=== PATIENT | female | born 1975 | race Caucasian/White ===

== ENCOUNTER 2017-05-25 19:43 | Emergency (ER) | payer OTHER ==
[2017-05-25 20:38] LABS: Hematocrit 40 % (35-47); Hemoglobin 13.7 g/dl (12.0-16.0); Mean Corpuscular HGB Conc 34 g/dl (31-36); Mean Corpuscular Hemoglobin 32 pg (27-31); Mean Corpuscular Volume 94 fL (80-97); Mean Platelet Volume 8 um3 (7.4-10.4); Red Blood Count 4.26 10^6/ul (4.0-5.4); Red Cell Distribution Width 13 % (10.5-15); White Blood Count 5.8 10^3/ul (3.5-10.8)
[2017-05-25 20:51] LABS: ALT 12 U/L (7-52); AST 12 U/L (13-39); Albumin 4.2 g/dL (3.2-5.2); Alkaline Phosphatase 45 U/L (34-104); Anion Gap 6 mmol/L (2-11); BUN/Creatinine Ratio 15.5 (8-20); Blood Urea Nitrogen 13 mg/dL (6-24); C Reactive Protein < 1.00 mg/L (< 5.00); CO2 Carbon Dioxide 28 mmol/L (22-32); Calcium 9.6 mg/dL (8.6-10.3); Chloride 104 mmol/L (101-111); Creatine Kinase 41 U/L (10-223); EGFR African American 95.6 (>60); EGFR Non-African American 74.4 (>60); Globulin 2.4 g/dL (2-4); Glucose 91 mg/dL (70-100); Lipase 52 U/L (11.0-82.0); Magnesium 2.2 mg/dL (1.9-2.7); Potassium 3.7 mmol/L (3.5-5.0); Sodium 138 mmol/L (133-145); Total Protein 6.6 g/dL (6.4-8.9)
[2017-05-25 21:26] LABS: TSH (Thyroid Stimulating Horm) 1.63 mcIU/mL (0.34-5.60)
[2017-05-25] MEDS ORDERED: Ketorolac INJ* 30 MG/ML 1 ML VIAL IV PUSH ONE (21:55)
[2017-05-25] MEDS ORDERED: Aspirin Low Dose CHEW TAB* 81 MG PO ONE (21:55)
[2017-05-25 22:18] VITALS: BP 113/79
--- NOTE | 2017-05-26 04:22 | ED ---
Abby Mendez Edward, scribed for Efrain Castano MD on 05/25/17 at 2210 . HPI Chest Pain - HPI Summary HPI Summary: 41 y/o female presents to the ED c/o intermittent CP for the past several days. The pain was rated 3/10 in severity at triage. Pt describes the pain as GERD- like. Associated sx: nausea, pain at hip area. Today the pain started after running 3 miles; pt was walking up stairs when it appeared. Pt states she also had some pressure when she got home. The pain is not aggravated with deep breaths. Pt states recent work-related stress. FHx heart disease, cousin at 41 of AA. Pt was in [facility] recently for business. Denies pedal edema or calf pain, SOB. Non smoker. PMHx no HTN, HLD or DM. - History of Current Complaint Chief Complaint: EDChestPainROMI Time Seen by Provider: 05/25/17 21:54 Hx Obtained From: Patient Onset/Duration: Started Days Ago Timing: Intermittent Initial Severity: Mild Pain Intensity: 3 Pain Scale Used: 0-10 Numeric Chest Pain Radiates: No Character: Pressure/Squeezing Aggravating Factor(s): Nothing Alleviating Factor(s): Nothing Associated Signs and Symptoms: Positive: Nausea. Negative: Shortness of Breath , Calf Pain/Swelling - Allergy/Home Medications Allergies/Adverse Reactions: Allergies Allergy/AdvReac Type Severity Reaction Status Date / Time No Known Allergies Allergy Verified 05/25/17 20:02 PMH/Surg Hx/FS Hx/Imm Hx Previously Healthy: No Endocrine/Hematology History: Denies: Hx Diabetes Cardiovascular History: Denies: Hx Hypertension Infectious Disease History: No Infectious Disease History: Reports: Traveled Outside the in Last 30 Days - [facility] - Family History Known Family History: Positive: Cardiac Disease - Social History Occupation: Employed Full-time Lives: With Family Hx Substance Use: No Substance Use Type: Reports: None Hx Tobacco Use: No Smoking Status (MU): Never Smoked Tobacco Review of Systems Constitutional: Negative Eyes: Negative ENT: Negative Positive: Chest Pain Respiratory: Negative Positive: Nausea Genitourinary: Negative Musculoskeletal: Negative Skin: Negative Neurological: Negative Psychological: Normal All Other Systems Reviewed And Are Negative: Yes Physical Exam Triage Information Reviewed: Yes Vital Signs On Initial Exam: Initial Vitals Temp Pulse Resp BP Pulse Ox 98.3 F 73 16 114/72 96 05/25/17 19:58 05/25/17 19:58 05/25/17 19:58 05/25/17 19:58 05/25/17 19:58 Vital Signs Reviewed: Yes Appearance: Positive: Well-Appearing, No Pain Distress Skin: Positive: Warm, Skin Color Reflects Adequate Perfusion, Dry Head/Face: Positive: Normal Head/Face Inspection Eyes: Positive: EOMI, HANNAH ENT: Positive: Normal ENT inspection Neck: Positive: Supple, Nontender Respiratory/Lung Sounds: Positive: Clear to Auscultation, Breath Sounds Present Cardiovascular: Positive: RRR, Pulses are Symmetrical in both Upper and Lower Extremities, Other - No Dolores's sign. Abdomen Description: Positive: Nontender, Soft Bowel Sounds: Positive: Present Musculoskeletal: Positive: Normal - No reproducible chest tenderness., Strength/ ROM Intact. Negative: Edema Left, Edema Right Neurological: Positive: Normal, Sensory/Motor Intact Diagnostics - Vital Signs Vital Signs Temp Pulse Resp BP Pulse Ox 05/25/17 19:58 98.3 F 73 16 114/72 96 - Laboratory Lab Results: Lab Results 05/25/17 05/25/17 05/25/17 Range/Units 20:22 20:22 20:22 WBC 5.8 (3.5-10.8) 10^3/ul RBC 4.26 (4.0-5.4) 10^6/ul Hgb 13.7 (12.0-16.0) g/dl Hct 40 (35-47) % MCV 94 (80-97) fL MCH 32 H (27-31) pg MCHC 34 (31-36) g/dl RDW 13 (10.5-15) % Plt Count 277 (150-450) 10^3/ul MPV 8 (7.4-10.4) um3 Neut % (Auto) 43.0 (38-83) % Lymph % (Auto) 43.1 (25-47) % Dundy % (Auto) 9.7 H (1-9) % Eos % (Auto) 2.9 (0-6) % Baso % (Auto) 1.3 (0-2) % Absolute Neuts (auto) 2.5 (1.5-7.7) 10^3/ul Absolute Lymphs (auto) 2.5 (1.0-4.8) 10^3/ul Absolute Monos (auto) 0.6 (0-0.8) 10^3/ul Absolute Eos (auto) 0.2 (0-0.6) 10^3/ul Absolute Basos (auto) 0.1 (0-0.2) 10^3/ul Absolute Nucleated RBC 0 10^3/ul Nucleated RBC % 0 INR (Anticoag Therapy) 0.86 (0.77-1.02) APTT 28.5 (26.0-36.3) seconds Sodium 138 (133-145) mmol/L Potassium 3.7 (3.5-5.0) mmol/L Chloride 104 (101-111) mmol/L Carbon Dioxide 28 (22-32) mmol/L Anion Gap 6 (2-11) mmol/L BUN 13 (6-24) mg/dL Creatinine 0.84 (0.51-0.95) mg/dL Est GFR ( Amer) 95.6 (>60) Est GFR (Non-Af Amer) 74.4 (>60) BUN/Creatinine Ratio 15.5 (8-20) Glucose 91 (70-100) mg/dL Lactic Acid (0.5-2.0) mmol/L Calcium 9.6 (8.6-10.3) mg/dL Magnesium 2.2 (1.9-2.7) mg/dL Total Bilirubin 0.70 (0.2-1.0) mg/dL AST 12 L (13-39) U/L ALT 12 (7-52) U/L Alkaline Phosphatase 45 (34-104) U/L Total Creatine Kinase 41 (10-223) U/L CK-MB (CK-2) 1.8 (0.6-6.3) ng/mL Troponin I 0.00 (<0.04) ng/mL C-Reactive Protein < 1.00 (< 5.00) mg/L Total Protein 6.6 (6.4-8.9) g/dL Albumin 4.2 (3.2-5.2) g/dL Globulin 2.4 (2-4) g/dL Albumin/Globulin Ratio 1.8 (1-3) Lipase 52 (11.0-82.0) U/L TSH 1.63 (0.34-5.60) mcIU/mL Beta HCG, Quant < 0.60 mIU/mL 05/25/17 Range/Units 20:22 WBC (3.5-10.8) 10^3/ul RBC (4.0-5.4) 10^6/ul Hgb (12.0-16.0) g/dl Hct (35-47) % MCV (80-97) fL MCH (27-31) pg MCHC (31-36) g/dl RDW (10.5-15) % Plt Count (150-450) 10^3/ul MPV (7.4-10.4) um3 Neut % (Auto) (38-83) % Lymph % (Auto) (25-47) % Dundy % (Auto) (1-9) % Eos % (Auto) (0-6) % Baso % (Auto) (0-2) % Absolute Neuts (auto) (1.5-7.7) 10^3/ul Absolute Lymphs (auto) (1.0-4.8) 10^3/ul Absolute Monos (auto) (0-0.8) 10^3/ul Absolute Eos (auto) (0-0.6) 10^3/ul Absolute Basos (auto) (0-0.2) 10^3/ul Absolute Nucleated RBC 10^3/ul Nucleated RBC % INR (Anticoag Therapy) (0.77-1.02) APTT (26.0-36.3) seconds Sodium (133-145) mmol/L Potassium (3.5-5.0) mmol/L Chloride (101-111) mmol/L Carbon Dioxide (22-32) mmol/L Anion Gap (2-11) mmol/L BUN (6-24) mg/dL Creatinine (0.51-0.95) mg/dL Est GFR ( Amer) (>60) Est GFR (Non-Af Amer) (>60) BUN/Creatinine Ratio (8-20) Glucose (70-100) mg/dL Lactic Acid 0.7 (0.5-2.0) mmol/L Calcium (8.6-10.3) mg/dL Magnesium (1.9-2.7) mg/dL Total Bilirubin (0.2-1.0) mg/dL AST (13-39) U/L ALT (7-52) U/L Alkaline Phosphatase (34-104) U/L Total Creatine Kinase (10-223) U/L CK-MB (CK-2) (0.6-6.3) ng/mL Troponin I (<0.04) ng/mL C-Reactive Protein (< 5.00) mg/L Total Protein (6.4-8.9) g/dL Albumin (3.2-5.2) g/dL Globulin (2-4) g/dL Albumin/Globulin Ratio (1-3) Lipase (11.0-82.0) U/L TSH (0.34-5.60) mcIU/mL Beta HCG, Quant mIU/mL Result Diagrams: 05/25/17 20:22 05/25/17 20:22 Lab Statement: Any lab studies that have been ordered have been reviewed, and results considered in the medical decision making process. - Radiology CXR Xray Interpretation: Positive (See Comments) - Perihilar inflammation with peribronchial cuffing Radiology Interpretation Completed By: ED Physician Re-Evaluation - Re-Evaluation 1 Re-Evaluation Time: 23:08 Change: Improved Comment: Discuss test and XR results Chest Pain Course/Dx - Course Course Of Treatment: Pt with chest tightness only after running over 3miles. Some burning in chest without cough. EKG/Trop/ddimer neg. Low risk. SHAUNNA score 0. HEART score 1. - Chest Pain Differential Diagnosis/HQI/PQRI: Acute KS, ACS, Lower Respiratory Infection, Pulmonary Embolism - Diagnoses Provider Diagnoses: Atypical chest pain, Bronchitis Discharge - Discharge Plan Condition: Good Disposition: HOME Prescriptions: predniSONE TAB* [Deltasone TAB*] 50 mg PO DAILY #3 tab Patient Education Materials: Chest Pain (ED), Acute Bronchitis (ED) Referrals: Loy Craig TRIMMER AND BORER MACHINE OPERATOR [Primary Care Provider] - Additional Instructions: humidifier while sleeping. Rest. Indoor exercise. Return with fever, worse, new symptoms or other concerns as discussed. The documentation as recorded by the Abby garcia Edward accurately reflects the service I personally performed and the decisions made by , Efrain Castano MD.
--- NOTE | 2017-05-26 07:38 | RAD ---
INDICATION: Chest pain. COMPARISON: There are no prior studies available for comparison. TECHNIQUE: Dual-energy PA and lateral views of the chest were obtained. FINDINGS: The heart is within normal limits in size. Mediastinal and hilar contours appear within normal limits. The lungs are clear. No pleural effusion is present. IMPRESSION: NO EVIDENCE FOR ACTIVE CARDIOPULMONARY DISEASE.
== END 2017-05-25 23:26 | disposition home or self-care (01) ==
LOC: ED 19:43
DX: R07.89 Other chest pain (principal); J40 Bronchitis, not specified as acute or chronic; I10 Essential (primary) hypertension; E78.5 Hyperlipidemia, unspecified; E11.9 Type 2 diabetes mellitus without complications
CPT/HCPCS: 36415; 71020; 80053; 82550; 82553; 83605; 83690; 83735; 84443; 84484; 84702; 85025; 85379; 85610; 85730; 86140; 93005; 99282; A9270-GY; J1885

== ENCOUNTER 2019-06-14 07:53 | Day surgery (SDC) | payer OTHER ==
[~2019-06-14 07:53] MED LIST: Acetaminophen TAB* 325 MG PO ONE; Buffered Lidocaine 1% SYRIN* 1 ML/SYRINGE INTRADERM ONE; Famotidine IV* 10 MG/ML 2 ML (20 mg) IV ONE; Gabapentin CAP(*) 300 MG PO ONE; Lactated Ringers 1000 ML Bag* 1,000 ML IV SCH
[2019-06-14] MEDS ORDERED: Gabapentin CAP(*) 300 MG ONE (09:07)
[2019-06-14] MEDS ORDERED: Acetaminophen TAB* 325 MG ONE (09:08)
[2019-06-14] MEDS ORDERED: Famotidine IV* 10 MG/ML 2 ML (20 mg) ONE (09:08)
[2019-06-14] MEDS ORDERED: Buffered Lidocaine 1% SYRIN* 1 ML/SYRINGE INTRADERM ONE (09:08)
[2019-06-14] MEDS ORDERED: Midazolam* 1 MG/ML 2 ML VIAL (2 MG) ONE (10:12)
[2019-06-14] MEDS ORDERED: fentaNYL* 50 MCG/ML 2 ML VIAL (100 MCG VIAL) ONE (10:12)
[2019-06-14] MEDS ORDERED: Lidocaine 1% w EPI 1:100,000* MDV 20 ML VIAL ONE (10:58)
[2019-06-14] MEDS ORDERED: Propofol* 10 MG/ML 20 ML BTL ONE (11:25)
[2019-06-14] MEDS ORDERED: Ondansetron INJ* 2 MG/ML VIAL ONE (11:25)
[2019-06-14] MEDS ORDERED: Dexamethasone IV* 4 MG/ML 1 ML (4 MG) ONE (11:25)
[2019-06-14] MEDS ORDERED: Ketorolac INJ* 30 MG/ML 1 ML VIAL ONE (11:25)
[2019-06-14] MEDS ORDERED: DiMENhydriNATE IV* 50 MG/ML VIAL IV PUSH PRN (11:37)
[2019-06-14] MEDS ORDERED: Ondansetron INJ* 2 MG/ML VIAL IV PRN (11:37)
[2019-06-14] MEDS ORDERED: fentaNYL* 50 MCG/ML 2 ML VIAL (100 MCG VIAL) IV PRN (11:37)
[2019-06-14] MEDS ORDERED: diPHENhydraMINE IV* 50 MG/ML 1 ml VIAL (BENADRYL) IV PRN (11:37)
[2019-06-14] MEDS ORDERED: Naloxone* 0.4 MG/ML 1 ML VIAL IV PRN (11:37)
[2019-06-14] MEDS ORDERED: HYDROcodone/ACETAMIN 5-325 MG* 1 TAB PO PRN (11:37)
[2019-06-14] MEDS ORDERED: EPHEDrine (Pressors)* 50 MG/ML VIAL ONE (11:46)
[2019-06-14 13:28] VITALS: BP 109/72
--- NOTE | 2019-06-15 21:30 | OP ---
OPERATIVE REPORT: DATE OF OPERATION: 06/14/19 DATE OF : 73 SURGEON: Vito Payne DO. ANESTHESIA: LMA general. PRE-OP DIAGNOSIS: Abnormal uterine bleeding and suspected endometrial polyp. POST-OP DIAGNOSIS: Abnormal uterine bleeding, confirmed endometrial polyp x2. OPERATIVE PROCEDURE: Operative hysteroscopy, polypectomy with MyoSure device, dilation and curettage. IV FLUIDS RECEIVED: 1600 mL. ESTIMATED BLOOD LOSS: 5 mL. FLUID DEFICIT: 500 mL. SPECIMEN: Endometrial polyp and endometrial curettage. COMPLICATIONS: None. INDICATIONS: A 43-year-old who presented to [facility] area for a scheduled hysteroscopy, polypectomy with MyoSure, and D and C, had a history of longstanding abnormal uterine bleeding, also known fibroid uterus, elects for polyp removal with hysteroscopy and MyoSure prior to undergoing uterine artery embolization with Interventional Radiology in the coming weeks. The risks, benefits, and alternatives of the procedure were discussed with the patient. She understood the risks of the procedure, include but are not limited to, uterine perforation, fluid overload, rare risk of . She wished to proceed and signed the consent form. FINDINGS: Exam under anesthesia revealed a normal sized retroverted uterus with multiple fibroids, hysteroscopy exhibited 1 pedunculated large polyp originating from the fundus and 1 smaller polyp at the internal cervical os. Uterine cavity and bilateral tubal ostia otherwise appeared to be normal. DESCRIPTION OF PROCEDURE: The patient was taken to the OR where general anesthesia was administered without difficulty. She was placed in the dorsal lithotomy position with [place] stirrups. An exam under anesthesia revealed the findings as outlined above. The patient was then prepared and draped in the normal sterile fashion. A weighted speculum was inserted in the posterior aspect of the vagina. A single-tooth tenaculum was used to grasp the anterior lip of the cervix. The cervix was carefully dilated up to a size 17 using the Hanks dilators to accommodate the [place] MyoSure hysteroscope. On entry into the uterine cavity, the hysteroscope was introduced under direct visualization and the uterus was distended with normal saline. The findings as listed above were noted. The uterine polyps were resected using the MyoSure reach device. The hysteroscope was then withdrawn and a sharp curettage was performed using a medium size sharp curette. The uterus was curetted in a clockwise fashion until a gritty feeling was noted in all aspects of the uterus. The endometrial polyps and endometrial curettage were sent to Pathology. The tenaculum was removed from the cervix and good hemostasis was noted at the puncture sites. The patient tolerated the procedure well. The instrument and sponge counts were correct x2. The patient was awakened from general anesthesia and taken to the recovery room in a stable condition. The patient will go home after recovering from anesthesia and meeting all the criteria for discharge. She has followup in the office in 1 week. I was present for the entire procedure. Joel Payne DO OBGYN [id number]/CPS #: [id number] MTDD
== END 2019-06-14 13:37 | disposition home or self-care (01) ==
LOC: OR 07:53
PROVIDERS: ATTEND Obstetrics & Gynecology
PROC: 0UDB7ZX Extraction of Endometrium, Via Natural or Artificial Opening, Diagnostic (ICD-10-PCS; 2019-06-14)
PROC: 0UB98ZX Excision of Uterus, Via Natural or Artificial Opening Endoscopic, Diagnostic (ICD-10-PCS; principal; 2019-06-14 10:00)
DX: N84.0 Polyp of corpus uteri (principal); N93.9 Abnormal uterine and vaginal bleeding, unspecified; D25.9 Leiomyoma of uterus, unspecified; Z87.891 Personal history of nicotine dependence
CPT/HCPCS: 88305; A9270-GY; J1100; J1885; J2250; J2405; J2704; J3010

== ENCOUNTER 2019-06-24 11:55 | Observation (INO) | payer OTHER ==
[2019-06-24] MEDS ORDERED: Clindamycin 900 MG/D5W BAG(*) 900 MG/50 ML BAG IVPB ONE (13:00)
[2019-06-24 13:23] LABS: Anion Gap 6 mmol/L (2-11); CO2 Carbon Dioxide 26 mmol/L (22-32); Calcium 9.2 mg/dL (8.6-10.3); Chloride 105 mmol/L (101-111); Potassium 4.1 mmol/L (3.5-5.0); Sodium 137 mmol/L (135-145)
[2019-06-24 13:29] LABS: BUN/Creatinine Ratio 17.8 (8-20); Blood Urea Nitrogen 13 mg/dL (6-24); EGFR African American 104.8 (>60); EGFR Non-African American 86.6 (>60); Glucose 86 mg/dL (70-100)
[2019-06-24 13:36] LABS: HCG Pregnancy < 0.60 mIU/mL
[2019-06-24] MEDS ORDERED: LORazepam TAB(*) 1 MG ONE (14:27)
[2019-06-24] MEDS ORDERED: Naproxen TAB* 250 MG ONE (14:50)
[2019-06-24] MEDS ORDERED: Scopolamine 1.5 mg* PATCH ONE (14:50)
[2019-06-24] MEDS ORDERED: Ondansetron INJ* 2 MG/ML VIAL ONE (14:51)
[2019-06-24] MEDS ORDERED: oxyCODONE SR TAB(*) 10 MG TAB.SR ONE (14:51)
[2019-06-24] MEDS ORDERED: Iohexol 350 (CONTRAST) 200 ML MDV IV ONE ×2 (15:09→16:49)
[2019-06-24] MEDS ORDERED: Heparin 2 UNITS/ML IVPREMIX* 2,000 ML IV ONE (15:09)
[2019-06-24] MEDS ORDERED: Lidocaine 1% INJ* 10 MG/ML 30 ML SDV ONE (15:09)
[2019-06-24] MEDS ORDERED: Ketorolac INJ* 30 MG/ML 1 ML VIAL ONE ×2 (15:29→17:04)
[2019-06-24] MEDS ORDERED: fentaNYL* 50 MCG/ML 2 ML VIAL (100 MCG VIAL) ONE (15:29)
[2019-06-24] MEDS ORDERED: Midazolam* 1 MG/ML 5 ML VIAL (5 MG) ONE (15:29)
[2019-06-24] MEDS ORDERED: nitroGLYCERIN DRIP* 25,000 MCG/250 ML BTL ONE (15:30)
[2019-06-24] MEDS ORDERED: fentaNYL* 50 MCG/ML 5 ML VIAL (250 MCG VIAL) ONE (15:43)
[2019-06-24] MEDS ORDERED: PROCHLORPERAZINE INJ 5 MG/ML 2 ML VIAL ONE (16:25)
[2019-06-24] MEDS ORDERED: HYDROmorphone INJ1* 1 MG/ML SYRINGE ONE (17:39)
[2019-06-24] MEDS ORDERED: HYDROmorphone PCA* 20 MG/20 ML PCA.SYRING ONE (18:00)
[2019-06-24] MEDS ORDERED: HYDROmorphone INJ1* 1 MG/ML SYRINGE IV PRN (18:16)
[2019-06-24] MEDS ORDERED: NS 0.9% 1000 ML** 1,000 ML IV SCH (18:30)
[2019-06-24] MEDS ORDERED: HYDROmorphone PCA* 20 MG/20 ML PCA.SYRING PCA SCH (18:30)
[2019-06-24] MEDS ORDERED: Acetaminophen TAB* 325 MG PO PRN (18:34)
--- NOTE | 2019-06-24 18:54 | PN ---
Progress Note - Progress Note Date of Service: 06/24/19 SOAP: Subjective: Pain controlled, <2/10 No nausea or emesis Objective: Selected Entries 06/24/19 06/24/19 18:24 18:30 Temperature 96.8 F Pulse Rate 66 Respiratory 16 Rate Blood Pressure 113/73 (mmHg) O2 Sat by Pulse 94 Oximetry NAD, Sleepy, but arousable to voice. Right groin is soft, nontender Dressing is CDI 2+ pulse at right PIPELINE OPERATOR, pop, DPA BLE neuromuscular function is grossly intact Abdomen and pelvis is soft, minimally tender Assessment: 43 YOF status post uterine fibroid arterial embolization with pain an nausea well controlled. Plan: 1. Admission with Hospitalist for routine Interventional Radiology pain & nausea control. 2. Diet. 3. Will see in AM.
[2019-06-24] MEDS: Ondansetron INJ* 2 MG/ML VIAL IV SCH (23:24)
[2019-06-24] MEDS: Ketorolac INJ* 15 MG/ML 1 ML VIAL IV PUSH SCH (23:31)
[2019-06-25] MEDS: Ondansetron INJ* 2 MG/ML VIAL IV SCH (05:17)
[2019-06-25] MEDS: Ketorolac INJ* 15 MG/ML 1 ML VIAL IV PUSH SCH (05:19)
[2019-06-25] MEDS ORDERED: Cholecalciferol TAB* 1000 UNITS PO SCH (09:00)
[2019-06-25] MEDS ORDERED: Cyanocobalamin TAB* 500 MCG PO SCH (09:00)
[2019-06-25] MEDS ORDERED: HYDROcodone/ACETAMIN 5-325 MG* 1 TAB PO PRN (09:23)
--- NOTE | 2019-06-25 09:23 | PN ---
Progress Note - Progress Note Date of Service: 06/25/19 SOAP: Subjective: Pain rated at 7/10. Denies nausea or emesis O/N. Has drank clear liquids and eaten breakfast of cereal, muffin and coffee. + void and ambulated without assistance. Objective: ] Selected Entries 06/25/19 06/25/19 07:33 08:00 Temperature 99 F Pulse Rate 72 Respiratory 16 Rate Blood Pressure 105/63 (mmHg) Blood Pressure 77 Mean O2 Sat by Pulse 98 Oximetry The patient has utilized only 1.8 mg of Dilaudid since yesterday evening according to her SUPERVISOR UNDERWRITING CLERKS NAD, AAO x 3, sitting up talking with Satish Abd & Pelvis are soft, but tender to deep palpation No rebound or guarding Right groin is soft, nontender Dressing is CDI 2+ pulses readily palpable at right WARDROBE CONSULTANT, pop and DPA Neuromuscular functions of RLE are intact Assessment: 43 YOF POD #1 Uterine Fibroid Arterial Embolization with nausea controlled and some pain. Patient was encouraged to utilize her pain medications both here at home during her recovery. Plan: 1. Transition IV to PO medications. 2. Anticipate DC to home today. 3. Routine IR clinic follow up will include RN call in 24 hours and 1 week followed by office visits in 6 weeks and 6 months. 4. Post UFE pharmacotherapy will be as follows: Toradol 10 mg PO Q 6 hours x 3 days (Dispense #15 with one refill) AFTER Toradol is complete: Ibuprofen 400 mg PO Q 6 hours OR Naprosyn 225 mg PO Q 8 hours for 3-5 days (do not take both) [place] 5/325, take 1 or 2 tablets by mouth Q 6 hours PRN breakthrough pain ( Dispense #40) Zofran 4 mg PO Q 6 hours x 7 days (Dispense #30 with one refill) Scopolamine 1.5 mg transdermal to mastoid process. On , 06/27/19 at 1200 PM, remove current patch, replace with new patch and wear x 3 days. Drink one cup of laxative tea daily (For example, "Smooth Move") for one week.
--- NOTE | 2019-06-25 09:45 | HP ---
CC: Dr. Payne; Dr. Whipple * HISTORY AND PHYSICAL: DATE OF ADMISSION: 06/24/19 PROVIDER: Dipti Bunn NP PRIMARY CARE PROVIDER: None. PRIMARY GATE AGENT: Dr. Payne. ATTENDING PHYSICIAN WHILE IN THE HOSPITAL: Dr. Asha Flaherty * (dictated by Dipti Bunn NP). CHIEF COMPLAINT: Status post uterine artery fibroid embolization. HISTORY OF PRESENT ILLNESS: Ms. Dillard is a 43-year-old female with no significant past medical history, who presented to [facility] for an elective uterine artery fibroid embolization with Dr. Whipple due to 2 years of heavy bleeding and multiple uterine fibroids. Please see dictated H and P from Dr. Whipple for complete details. In brief, the patient had ongoing heavy bleeding with multiple uterine fibroids, so opted to have an elective uterine artery fibroid embolization with Dr. Whipple. In the postoperative period, the patient has no complaints. PAST MEDICAL HISTORY: Significant for menorrhagia, uterine fibroids. PAST SURGICAL HISTORY: 1. x2. 2. Tonsillectomy. HOME MEDICATIONS: Include: 1. Women's multivitamin. 2. Vitamin B12. 3. Vitamin D. ALLERGIES: No known drug allergies. FAMILY HISTORY: No reported history of coronary artery disease or stroke. No history of diabetes. Father with a history of prostate cancer. Mother with a history of thyroid cancer. SOCIAL HISTORY: The patient reports that she quit smoking approximately 10 years ago. Prior to that, she smoked socially for 10 years. She does report daily alcohol use of 3 glasses of wine daily. She does report occasional marijuana use. Surrogate decision maker in the event she is unable to make her own decisions is her . She is a full code. REVIEW OF SYSTEMS: She denies any fever, chills, unintended weight loss. Denies any chest pain or edema. No cough, hemoptysis, or shortness of breath. No nausea, vomiting, diarrhea, abdominal pain, hematuria, dysuria. She denies any focal weakness, sensory loss, visual complaints, dysphagia, arthralgias, myalgias, rashes, lesions, open sores, psychosis, or anxiety. PHYSICAL EXAMINATION GENERAL: At this time, Ms. Dillard is a 43-year-old female. She is resting comfortably on the stretcher in PACU. She is drowsy. She is alert and oriented x3. VITAL SIGNS: Blood pressure 129/74, heart rate 64, respirations are 18, O2 saturation 98%, temperature is 96.8. HEENT: Head is atraumatic, normocephalic. Eyes: EOMs are intact. Sclerae anicteric and not pale. Oral mucosa appeared to be moist. NECK: Supple. LUNGS: Clear to auscultation bilaterally. No wheezes, rales, or rhonchi. ABDOMEN: With mild tenderness to lower abdomen. Bowel sounds are active x4. EXTREMITIES: She is able to move all 4 extremities. Sensation is intact. There is no clubbing or cyanosis. Pedal pulses are +2 bilaterally. Radial pulses are +2 bilaterally. NEUROLOGIC: She is awake. She is drowsy, resting on the stretcher on PACU. She is in no acute distress. She has no gross focal deficits. Her speech is clear. SKIN: Intact. DIAGNOSTIC STUDIES/LAB DATA: Sodium 137, potassium 4.1, chloride 105, carbon dioxide 26, anion gap was 6, BUN was 13, creatinine 0.73, glucose is 86, calcium 9.2. Beta hCG quantitative is less than 0.60. IMPRESSION AND PLAN: Ms. Dillard is a 43-year-old female with no significant past medical history, who presented to [facility] for an elective uterine artery fibroid embolization with Dr. Whipple. She will be admitted under observation for: 1. Uterine artery fibroid embolization. Management per Dr. Whipple. 2. FEN: She can have a regular diet. 3. Code status: She is a full code. 4. DVT prophylaxis: As per Dr. Whipple. I would encourage ambulation when able. TIME SPENT: Time spent on this admission was 45 minutes; greater than half that time was spent at the bedside reviewing the events leading thus far to her hospitalization, performing physical exam, and reviewing my plan of care. I have discussed this with my attending, Dr. Asha Flaherty; she is in agreement with my plan. DIPTI BUNN, FRANCES [id number]/[facility] #: [id number] [facility]IT[facility]
[2019-06-25] MEDS ORDERED: Ondansetron TAB* 4 MG PO SCH (10:00)
[2019-06-25] MEDS ORDERED: Ketorolac TAB * 10 MG TAB PO SCH (10:00)
[2019-06-25 11:16] VITALS: BP 108/61
--- NOTE | 2019-06-26 05:41 | DS ---
DISCHARGE SUMMARY: DATE OF ADMISSION: 06/24/19 DATE OF DISCHARGE: 06/25/19 PROVIDER: Dulce Du NP ATTENDING PHYSICIAN: Dr. Flaherty.* (DICTATED BY uDlce Du NP) PRIMARY CARE PHYSICIAN: None. CONSULTING PHYSICIAN: Dr. Whipple. PRIMARY DIAGNOSIS: Multiple uterine fibroid embolizations. PROCEDURES: Status post uterine fibroid embolization. STUDIES: None. PERTINENT LAB DATA: None. HISTORY OF PRESENT ILLNESS/HOSPITAL COURSE: This is a 43-year-old female with a past medical history significant for uterine fibroid embolizations, who was admitted on 06/24/19 status post an elective uterine fibroid embolization after 2 years of heavy bleeding that failed conservative management. Her hospital stay was relatively uneventful. Her pain initially was managed with Dilaudid OPTICAL GLASS SILVERER and IV Toradol, though nausea was managed with IV Zofran and scopolamine patch. This morning, the patient was transitioned over to oral pain medication , was given hydrocodone and oral Toradol as well as oral Zofran and tolerated those medications well. Pain was under control. At the time of my evaluation, she had neither pain nor nausea. Her right groin access site has remained without any bruising or hematoma noted. Peripheral pulses have been positive. The patient stated she felt well and was anxious to be discharged home. REVIEW OF SYSTEMS: An 11-point system review was performed which was positive for abdominal pain with movement, though denied pain at rest. Denied any headaches, dizziness, chest pain, palpitations, shortness of breath, nausea, vomiting, issues moving her bowels or bladder. PHYSICAL EXAM: Vital Signs: 98.3 Fahrenheit, 73 pulse, 16 respirations, 100% oxygen on room air, 108/61 blood pressure. General: This is a well-developed woman, seen resting in the bed, in no acute distress. HEENT: Conjunctivae pink and moist. PERRLA. EOMs intact. Oropharynx clear. Mucous membranes moist. Neck is supple. Cardiac: S1, S2 present. Heart rate regular. No murmurs, gallops, or rubs appreciated. Respiratory: Lung sounds clear throughout bilaterally on room air. No accessory muscle use noted. Abdomen that was softly distended, tender diffusely to palpation with positive bowel sounds x4. Musculoskeletal: 5/5 strength to bilateral upper and lower extremities. No clubbing or cyanosis of the digits. Peripheral pulses equal and strong. Neurological: Sensation intact to light touch. No focal deficits appreciated. Skin: Dressing to right groin intact with trace amount of old bloody drainage without evidence of hematoma. No other open areas or rashes appreciated. Psych: She is alert and oriented x4 with no overt anxiety or depression. DISCHARGE PLAN: Diet is as tolerated. Activity is as tolerated. The patient is to return to the hospital should she notice any spreading bruise around the insertion site, fever of 101 degrees or higher, or increase in abdominal pain or nausea and vomiting not controlled by her medications. PLAN FOR EACH CONDITION: Uterine fibroids, status post UFE. She is to follow up with Dr. Whipple in 6 weeks from the date of her embolization and for second followup appointment in 6 months. Recommended that she drink 1 cup of laxative tea daily and take her regularly scheduled Toradol for 3 days, to switch to ibuprofen or Naprosyn for every 8 hours scheduled for the next 3 to 4 days, though should not take both. She can use Maria Stein for breakthrough pain not controlled by Toradol or ibuprofen and she is to take sublingual Zofran every 6 hours around the clock for the next 7 days and she is to change her scopolamine patch on 06/27/19, at which point she will remove that and place a new patch behind her opposite ear for the next 3 days and then remove. DISCHARGE MEDICATIONS: Medications to be continued upon discharge: 1. Vitamin B12 1000 mcg p.o. daily. 2. Women's Multivitamin 1 tab p.o. daily. 3. Vitamin D 1000 units p.o. daily. 4. Scopolamine 1.5 mg patch 1 patch transdermally q.72 hours. 5. Ondansetron ODT 4 mg p.o. q.6 hours x7 days. 6. Ketorolac 10 mg p.o. q.6 hours times the next 3 days. 7. Ibuprofen 400 mg p.o. q.6 hours p.r.n. 8. Naprosyn mg p.o. q.8 hours p.r.n. 9. Hydrocodone 5/325, 1 to 2 tablets p.o. q.6 hours p.r.n., max daily dose of 8. CONDITION UPON DISCHARGE: Stable. DISPOSITION: To home. TIME SPENT: Time spent on patient is about 50 minutes with half of that spent face- to-face. Dulce Du, FLOOR MOLDER [id number]/[facility] #: [id number] [facility]
== END 2019-06-25 11:30 | disposition home or self-care (01) ==
LOC: CHICATH 11:55 → SSU 18:34
PROVIDERS: ADMIT Radiology Diagnostic Radiology; ATTEND Internal Medicine
DX: D25.9 Leiomyoma of uterus, unspecified (principal); N92.4 Excessive bleeding in the premenopausal period; R10.9 Unspecified abdominal pain; Z79.899 Other long term (current) drug therapy; Z87.891 Personal history of nicotine dependence
CPT/HCPCS: 36415; 37243; 75736; 76937; 80048; 84702; 96374; 96375; 96376; 99156; 99157; A9270-GY; C1769; C1884; C1887; C1894; G0378; J0780; J1170; J1644; J1885; J2250; J2405; J3010